=== PATIENT | male | born 1970 | race Caucasian/White ===

== ENCOUNTER → 2017-04-25 | Outpatient (CLI) | payer BC ==
[~2017-04-25] MED LIST: ASCA500 PO; ATV1 PO; CHERRY PO; CODCAP PO; CYCL5TAB PO; DICL1GEL12 TOP; FEXO1TAB64 PO; HYDR-5688 PO; RXC5 PO; TRAM-10 PO
--- NOTE | 2017-04-25 14:40 | DIAGNOSTIC IMAGING REPORT ---
R LOWER EXT JOINT WITHOUT CLINICAL HISTORY: 46 years-old Male with M25.461. Acute right knee pain, most pronounced in the region of the patella, worse with going up stairs. Concern for meniscal tear. COMPARISON: None available TECHNIQUE: Multiplanar, multisequence MRI of the right knee was performed without intravenous contrast. FINDINGS: Sagittal PD sequences moderately motion degraded. MENISCI: The medial and lateral meniscus are normal in position, morphology and signal. CRUCIATE LIGAMENTS: The anterior and posterior cruciate ligaments are normal in signal, morphology and course. COLLATERAL LIGAMENTS: The popliteus tendon, biceps femoris tendon, fibular collateral ligament and iliotibial band are intact. The superficial and deep components of the medial collateral ligament are intact. EXTENSOR MECHANISM: The quadriceps and patellar tendons are intact. The medial and lateral patellar retinacula are intact. KNEE JOINT: There is a small joint effusion. There is no focal cartilage or osteochondral abnormality. Minimal chondral fraying involves the patellofemoral joint without high-grade chondromalacia. BONE MARROW: No fracture or marrow replacing process. Mildly increased marrow signal of the mid and lateral patella noted as seen on images 8, 9 and 10 of series 4 without fracture suggesting possible contusion. SOFT TISSUES: There is mild edema noted within the infrapatellar fat laterally interposed between the lateral patellar facet and lateral trochlea as seen on image 13 of series 4 and image 6 of series 9. The tibial tuberosity to trochlear groove interval is within normal limits. No evidence of patella francie. Mild soft tissue edema within the superficial pretibial bursa on image 11 of series 9. There is a multiloculated cystic structure measuring 1.5 x 0.5 x 0.8 cm adjacent to the lateral meniscal body as seen on image 20 of series 4 and image 16 of 25 suggesting ganglion or less likely parameniscal cyst as no meniscal tear identified. IMPRESSION: 1. Findings compatible with patellar tendon lateral femoral condyle friction syndrome as above. No evidence of associated tibial tuberosity to trochlear groove interval widening or patella francie. 2. No meniscal, or ligamentous tear identified. 3. Mild edema within the superficial pretibial bursa without loculated collection to suggest bursitis. 4. 1.5 cm multiloculated cystic structure adjacent to the lateral meniscal body suggests ganglion or less likely parameniscal cyst as no meniscal tear is identified. The above report was generated using voice recognition software. It may contain grammatical, syntax or spelling errors. Electronically signed by: Chaparro Vaughan M.D. 04/25/2017 2:38 PM Dictated Date/Time: 04/25/2017 2:26 PM
== END | disposition home or self-care (01) ==
LOC: C.MRI 13:29
PROVIDERS: ATTEND Internal Medicine
DX: M25.461 Effusion, right knee (principal); M25.861 Other specified joint disorders, right knee